=== PATIENT | female | born 1995 | race Caucasian/White ===

== ENCOUNTER 2017-03-28 18:59 | Emergency (ER) | payer OTHER ==
[2017-03-28 19:08] VITALS: BP 107/79; TEMP 98.1
--- NOTE | 2017-03-28 19:23 | EDPHY ---
H & P Stated Complaint: SI/took 750 bottle of vodka and 2 of boyfriends 100mg seroquel tabs Time Seen by Provider: 03/28/17 19:13 HPI/ROS: CHIEF COMPLAINT: Intoxication HISTORY OF PRESENT ILLNESS: The patient is a 21-year-old female brought in to the emergency department by her fiance and parents. Her fiance states that he found her on the floor at home with an empty bottle of vodka and his sleeping pills. He had difficulty arousing her. When he was able to her arouse her she stated that she took 2 of his 100 mg Seroquel. She tells me that she was not trying to kill herself but was simply trying to get high. The patient's fiancee denies any recent suicidal intentions or discussions and cetera. She does have a history of depression and takes Pristiq and sees a therapist. REVIEW OF SYSTEMS: Constitutional: denies: chills, fever, recent illness, recent injury EENTM: denies: blurred vision, double vision, nose congestion Respiratory: denies: cough, shortness of breath Cardiac: denies: chest pain, irregular heart rate, lightheadedness, palpitations Gastrointestinal/Abdominal: denies: abdominal pain, diarrhea, nausea, vomiting, blood streaked stools Genitourinary: denies: dysuria, frequency, hematuria, pain Musculoskeletal: denies: joint pain, muscle pain Skin: denies: lesions, rash, jaundice, bruising Neurological: denies: headache, numbness, paresthesia, tingling, dizziness, weakness Hematologic/Lymphatic: denies: blood clots, easy bleeding, easy bruising Immunologic/allergic: denies: HIV/AIDS, transplant EXAM: GENERAL: Sitting upright, awake and alert, answering questions appropriately HEAD: Atraumatic, normocephalic. EYES: Pupils equal round and reactive to light, extraocular movements intact, sclera anicteric, conjunctiva are normal. ENT: TMs normal, nares patent, oropharynx clear without exudates. Moist mucous membranes. NECK: Normal range of motion, supple without lymphadenopathy or JVD. LUNGS: Breath sounds clear to auscultation bilaterally and equal. No wheezes rales or rhonchi. HEART: Regular rate and rhythm without murmurs, rubs or gallops. ABDOMEN: Soft, nontender, normoactive bowel sounds. No guarding, no rebound. No masses appreciated. BACK: No CVA tenderness, no spinal tenderness, step-offs or deformities EXTREMITIES: Normal range of motion, no pitting or edema. No clubbing or cyanosis. NEUROLOGICAL: Cranial nerves II through XII grossly intact. Normal speech, normal gait. 5/5 strength, normal movement in all extremities, normal sensation PSYCH: Normal mood, normal affect. Denies suicidality SKIN: Warm, dry, normal turgor, no visible rashes or lesions. Source: Patient, Family Exam Limitations: Intoxication - Personal History LMP (Females 10-55): Unknown Current Tetanus/Diphtheria Vaccine: Yes - Medical/Surgical History Hx Asthma: No Hx Chronic Respiratory Disease: No Hx Diabetes: No Hx Cardiac Disease: No Hx Renal Disease: No Hx Cirrhosis: No Hx Alcoholism: No Hx HIV/AIDS: No Hx Splenectomy or Spleen Trauma: No Other PMH: DEPRESSION SEES THERAPIST MARIO - Family History Significant Family History: No pertinent family hx - Social History Smoking Status: Current every day smoker Alcohol Use: Sober Drug Use: None Constitutional: Initial Vital Signs Temperature (C) 36.7 C 03/28/17 19:04 Heart Rate 240 H 03/28/17 19:04 Respiratory Rate 18 03/28/17 19:04 Blood Pressure 107/79 03/28/17 19:04 O2 Sat (%) 94 03/28/17 19:04 O2 Delivery Mode Room Air Allergies/Adverse Reactions: No Known Allergies Allergy (Verified 03/28/17 19:03) Home Medications: Medication Instructions Recorded Depl[place]-Algal Oil 15 mg Capsule 10/04/15 Nuvaring 10/04/15 Medical Decision Making ED Course/Re-evaluation: 7:40 p.m. I spoke with the patient's fiancee and then mom. They both do not feel that the patient is suicidal. They are concerned that she may have taken too much Seroquel. She only took 2 pills. She is awake and alert. She contracts for safety. They will stay with her tonight. Mom states that she has been through this before and does not think that the patient needs hospitalization or to stay for further psychiatric evaluation. I will release the patient to their care. The patient is eager to go. Differential Diagnosis: Partial list of the Differential diagnosis considered include but were not limited to; intoxication, substance abuse, depression and although unlikely based on the history and physical exam, I also considered suicidality, infection , head injury. Departure - Departure Disposition: Home, Routine, Self-Care Clinical Impression: Intoxication Condition: Fair Instructions: Alcohol Intoxication (ED) Additional Instructions: Return immediately if you have any thought of suicide, self harm, harming others or are feeling unsafe. Please call the police if this occurs. Referrals: Harman Steele [Primary Care Provider] - As per Instructions
[2017-03-28 19:40] VITALS: RESP 15
[2017-03-28 19:57] VITALS: PULSE 93; O2SAT 97
== END 2017-03-28 19:55 | disposition home or self-care (01) ==
DX: F10.129 Alcohol abuse with intoxication, unspecified (principal); F17.200 Nicotine dependence, unspecified, uncomplicated

== ENCOUNTER → 2017-05-10 | Outpatient (CLI) | payer OTHER | LOC: BMCIMAGING 15:06 | PROVIDERS: ATTEND Family Medicine | DX: R93.8 Abnormal findings on diagnostic imaging of other specified body structures (principal) ==

== ENCOUNTER 2017-08-06 16:22 | Emergency (ER) | payer MEDICAID, OTHER ==
[2017-08-06] MEDS ORDERED: ONDANSETRON 4 MG/2 ML VIAL IVP ONE ×2 (16:25→17:00)
[2017-08-06] MEDS ORDERED: NS 1,000 ML IV ONE (16:25)
[2017-08-06] MEDS ORDERED: LORazepam 2 MG/ML INJ IVP ONE ×2 (16:25→17:59)
[2017-08-06] MEDS ORDERED: LORazepam 2 MG/ML INJ ONE (16:26)
--- NOTE | 2017-08-06 16:30 | EDPHY ---
H & P Time Seen by Provider: 08/06/17 16:22 HPI/ROS: HPI Methamphetamine and cocaine abuse. 21-year-old female by ambulance from her apartment. Patient reports that she has been snorting a combination of methamphetamine and cocaine for the last 24 hr straight. 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 She then was driving home and felt like she was intermittently about to fall asleep. She got back to her apartment. She stated that she called EMS secondary to feeling very nauseous and feeling tingling and shaking in both her hands and her feet. No chest pain. No shortness of breath. Denies any other ingestion. No suicidal thoughts. ROS: Constitutional: No fever, no chills. As above. Eyes: No discharge. No changes in vision. ENT: No sore throat. No nasal congestion or rhinorrhea. Respiratory: No cough. No shortness of breath. Cardiac: No chest pain, no palpitations. Gastrointestinal: No abdominal pain, no vomiting, no diarrhea. Genitourinary: No hematuria. No dysuria or increased frequency with urination. Musculoskeletal: No back pain. No neck pain. No myalgias or arthralgias. Skin: No rashes. Neurological: No headache. No focal weakness or altered sensation. As above. Past medical history: Substance abuse. Otherwise no significant past medical history. Social history: Smoker. Drinks alcohol socially. As above. Lives at an apartment with a roommate. Physical Exam: General Appearance: Alert, anxious. This patient is responding to questions appropriately and in full sentences. This patient appears well-hydrated and well-nourished. Eyes: Pupils equal and round at 4-2 mm bilaterally, no pallor or injection. No lid edema, erythema or injection. ENT, Mouth: Mucous membranes are moist. The pharyngeal tissues are unremarkable. No edema or swelling. No asymmetry suggestive of abscess. No erythema or exudates. No tongue lacerations or abrasions. Respiratory: There are no retractions, lungs are clear to auscultation with good air movement bilaterally. Cardiovascular: Regular rate and rhythm. Borderline tachycardia. No murmur. Gastrointestinal: Abdomen is soft and nontender, no masses, bowel sounds normal. No focal tenderness at McBurney's point. No Mays sign. Neurological: Motor sensory function is grossly intact. Cranial nerves are normal. Gait is normal. Skin: Warm and dry, no rashes. Musculoskeletal: Neck is supple and nontender. Extremities are symmetrical. All joints range without pain or impingement. Psychiatric: No agitation. No depression. Database: EKG: EKG time is 4:36 p.m.; EKG shows a narrow complex sinus rhythm with sinus arrhythmia with a ventricular rate of 93. The MA, QRS, QT intervals are within normal limits. There are no ST-T wave changes indicative of ischemic or injury pattern. No evidence of right heart strain. Interpreted by me. Imaging: Procedures: Emergency department course: IV placed. She was placed on a cardiac cath technologist. EKG obtained and reviewed by myself. She was started on IV normal saline with 1 L to be given over the next hour. She was initially given 1 mg of IV Ativan. This medication will be repeated as needed for anxiolysis and sympathomimetic toxicity. 5:30 p.m., patient complains of continued nausea. She was given 6.25 mg of IV Phenergan. She has had 2 4 mg doses of IV Zofran. This time she appears relaxed. 6:00 p.m., patient states she is feeling more agitated. She was given an additional 0.5 mg of IV Ativan. 6:30 p.m., the patient is talking to her friend on her cell phone. Vital signs reviewed and are normal. She is feeling better after above medications. I feel she is safe for discharge. I discussed with her the liabilities of drug abuse. I discussed follow-up. Return to emergency department precautions reviewed, all of her questions were answered. She was discharged in good condition with a sober ride. Differential Diagnosis: The differential diagnosis on this patient includes but is not limited to methamphetamine and cocaine abuse, sympathomimetic toxidrome, anxiety. This represents a partial list of diagnoses considered. These considerations are based on history, physical exam, past history, reassessment and diagnostic testing. Smoking Status: Current every day smoker Constitutional: Initial Vital Signs Temperature (C) 37.0 C 08/06/17 16:33 Heart Rate 87 08/06/17 16:33 Respiratory Rate 18 08/06/17 16:33 Blood Pressure 149/87 H 08/06/17 16:33 O2 Sat (%) 99 08/06/17 16:33 O2 Delivery Mode Room Air Allergies/Adverse Reactions: No Known Allergies Allergy (Verified 03/28/17 19:03) Home Medications: Medication Instructions Recorded [place]-Algal Oil 15 mg Capsule 10/04/15 Nuvaring 10/04/15 Medical Decision Making - Data Points Laboratory Results: Laboratory Results 08/06/17 16:32 08/06/17 16:32 08/06/17 08/06/17 08/06/17 16:32 16:32 16:32 WBC RBC Hgb Hct MCV MCH MCHC RDW Plt Count MPV Neut % (Auto) Lymph % (Auto) [place] % (Auto) Eos % (Auto) Baso % (Auto) Nucleat RBC Rel Count Absolute Neuts (auto) Absolute Lymphs (auto) Absolute Monos (auto) Absolute Eos (auto) Absolute Basos (auto) Absolute Nucleated RBC Immature Gran % Immature Gran # Sodium 139 mEq/L mEq/L (135-145) Potassium 3.3 mEq/L L mEq/L (3.5-5.2) Chloride 100 mEq/L mEq/L (97-110) Carbon Dioxide 23 mEq/l mEq/l (22-31) Anion Gap 16 mEq/L mEq/L (8-16) BUN 11 mg/dL mg/dL (7-23) Creatinine 0.7 mg/dL mg/dL (0.6-1.0) Estimated GFR > 60 Glucose 116 mg/dL H mg/dL (70-100) Calcium 10.3 mg/dL mg/dL (8.5-10.4) Beta HCG, Qual NEGATIVE Urine Opiates Screen NEGATIVE (NEGATIVE) Urine Barbiturates NEGATIVE (NEGATIVE) Ur Phencyclidine Scrn NEGATIVE (NEGATIVE) Ur Amphetamine Screen NON-NEGATIVE H (NEGATIVE) U Benzodiazepines Scrn NEGATIVE (NEGATIVE) Urine Cocaine Screen NON-NEGATIVE H (NEGATIVE) U Marijuana (THC) Screen NEGATIVE (NEGATIVE) Ethyl Alcohol < 10 mg/dL mg/dL (0-10) 08/06/17 16:32 WBC 15.39 10^3/uL H 10^3/uL (3.80-9.50) RBC 5.50 10^6/uL H 10^6/uL (4.18-5.33) Hgb 16.0 g/dL g/dL (12.6-16.3) Hct 46.6 % % (38.0-47.0) MCV 84.7 fL fL (81.5-99.8) MCH 29.1 pg pg (27.9-34.1) MCHC 34.3 g/dL g/dL (32.4-36.7) RDW 13.0 % % (11.5-15.2) Plt Count 286 10^3/uL 10^3/uL (150-400) MPV 8.8 fL fL (8.7-11.7) Neut % (Auto) 70.7 % % (39.3-74.2) Lymph % (Auto) 17.7 % % (15.0-45.0) [place] % (Auto) 8.0 % % (4.5-13.0) Eos % (Auto) 2.7 % % (0.6-7.6) Baso % (Auto) 0.6 % % (0.3-1.7) Nucleat RBC Rel Count 0.0 % % (0.0-0.2) Absolute Neuts (auto) 10.89 10^3/uL H 10^3/uL (1.70-6.50) Absolute Lymphs (auto) 2.72 10^3/uL 10^3/uL (1.00-3.00) Absolute Monos (auto) 1.23 10^3/uL H 10^3/uL (0.30-0.80) Absolute Eos (auto) 0.41 10^3/uL H 10^3/uL (0.03-0.40) Absolute Basos (auto) 0.09 10^3/uL 10^3/uL (0.02-0.10) Absolute Nucleated RBC 0.00 10^3/uL 10^3/uL (0-0.01) Immature Gran % 0.3 % % (0.0-1.1) Immature Gran # 0.05 10^3/uL 10^3/uL (0.00-0.10) Sodium Potassium Chloride Carbon Dioxide Anion Gap BUN Creatinine Estimated GFR Glucose Calcium Beta HCG, Qual Urine Opiates Screen Urine Barbiturates Ur Phencyclidine Scrn Ur Amphetamine Screen U Benzodiazepines Scrn Urine Cocaine Screen U Marijuana (THC) Screen Ethyl Alcohol Medications Given: Discontinued Medications Sodium Chloride (Ns) 1,000 mls @ 0 mls/hr IV ONCE ONE; Wide Open PRN Reason: Protocol Stop: 08/06/17 16:26 Last Admin: 08/06/17 16:32 Dose: 1,000 mls Lorazepam (Ativan Injection) 1 mg IVP EDNOW ONE Stop: 08/06/17 16:26 Last Admin: 08/06/17 16:28 Dose: 1 mg Lorazepam (Ativan Injection) 0.5 mg IVP EDNOW ONE Stop: 08/06/17 18:00 Last Admin: 08/06/17 18:06 Dose: 0.5 mg Ondansetron HCl (Zofran) 4 mg IVP EDNOW ONE Stop: 08/06/17 16:26 Last Admin: 08/06/17 16:32 Dose: 4 mg Ondansetron HCl (Zofran) 4 mg IVP EDNOW ONE Stop: 08/06/17 17:01 Last Admin: 08/06/17 17:03 Dose: 4 mg Promethazine HCl (Phenergan) 6.25 mg IVP EDNOW ONE Stop: 08/06/17 17:25 Last Admin: 08/06/17 17:32 Dose: 6.25 mg Departure - Departure Disposition: Home, Routine, Self-Care Clinical Impression: Methamphetamine abuse, Cocaine abuse Condition: Good Instructions: Cocaine Abuse (ED), Methamphetamine Abuse (ED) Additional Instructions: Read and follow provided instructions. Go home and get some sleep. Do not use drugs or alcohol. Follow-up with your primary care physician in 1-2 days for re-evaluation. Return to the emergency department for worsening symptoms or other serious concerns. Referrals: Patient,NotPresent [Primary Care Provider] - As per Instructions
--- NOTE | 2017-08-06 16:38 | CPEKG ---
Heart Rate: 93 RR Interval: 645 P-R Interval: 152 QRSD Interval: 80 QT Interval: 412 QTC Interval: 513 P [place]: 24 QRS [place]: 88 T Wave [place]: 30 EKG Severity - ABNORMAL ECG - EKG Impression: SINUS ARRHYTHMIA, RATE 66-106 EKG Impression: PROLONGED QT INTERVAL Electronically Signed By: Karlie Cavazos 06-Aug-2017 22:43:00
[2017-08-06 16:39] LABS: PLATELET COUNT 286 10^3/uL (150-400)
[2017-08-06] MEDS ORDERED: ONDANSETRON 4 MG/2 ML VIAL ONE (16:56)
[2017-08-06] MEDS ORDERED: PROMETHAZINE HCL 25 MG/ML INJ IVP ONE (17:24)
[2017-08-06 18:12] VITALS: RESP 16
[2017-08-06 19:15] VITALS: BP 144/91; PULSE 80; TEMP 96.8; O2SAT 100
== END 2017-08-06 19:15 | disposition home or self-care (01) ==
LOC: EDUNIT#
DX: F15.10 Other stimulant abuse, uncomplicated (principal); F14.10 Cocaine abuse, uncomplicated; E86.9 Volume depletion, unspecified; F17.200 Nicotine dependence, unspecified, uncomplicated
CPT/HCPCS: 80305; 96374; G0480; J2060; J2405; J2550

== ENCOUNTER → 2018-05-31 | Outpatient (CLI) | payer OTHER | LOC: BMCIMAGING 15:44 | PROVIDERS: ATTEND Family Medicine | DX: M79.672 Pain in left foot (principal) ==

== ENCOUNTER → 2018-07-12 | Outpatient (CLI) | payer OTHER | LOC: BMCIMAGING 14:14 | PROVIDERS: ATTEND Podiatrist Foot & Ankle Surgery | DX: Z09 Encounter for follow-up examination after completed treatment for conditions other than malignant neoplasm (principal); Z98.890 Other specified postprocedural states ==

== ENCOUNTER → 2018-08-07 | Outpatient (CLI) | payer OTHER | LOC: BMCIMAGING 13:31 | PROVIDERS: ATTEND Podiatrist Foot & Ankle Surgery | DX: Z09 Encounter for follow-up examination after completed treatment for conditions other than malignant neoplasm (principal) ==

== ENCOUNTER → 2018-09-04 | Outpatient (CLI) | payer OTHER | LOC: BMCIMAGING 14:42 | PROVIDERS: ATTEND Podiatrist Foot & Ankle Surgery | DX: S92.352D Displaced fracture of fifth metatarsal bone, left foot, subsequent encounter for fracture with routine healing (principal) ==